=== PATIENT | male | born 1965 | race Caucasian/White ===

== ENCOUNTER → 2020-01-25 | Outpatient (CLI) | payer OTHER ==
--- NOTE | 2020-01-25 13:37 | Diagnostic Imaging Report ---
INDICATION: Puncture wound. COMPARISON: None available. TECHNIQUE: Three radiograph of the left foot dated January 25, 2020. FINDINGS: No acute fracture or dislocation. No destructive osseous process. 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 The Lisfranc joint is well aligned. Soft tissue swelling is noted along the plantar aspect of the foot without suspicious radiopaque foreign body. There is a small plantar calcaneal enthesophyte. IMPRESSION: No acute osseous abnormality with degenerative changes present, particularly involving the first MTP joint. Soft tissue swelling about the plantar aspect of the foot without suspicious radiopaque foreign body. Dictated by: Dictated on workstation # [id number]
== END ==
LOC: RAD 10:43
PROVIDERS: ATTEND Nurse Practitioner Family
DX: S91.332A Puncture wound without foreign body, left foot, initial encounter (principal); X58.XXXA Exposure to other specified factors, initial encounter
CPT/HCPCS: 73630

== ENCOUNTER → 2020-01-28 | Outpatient (CLI) | payer OTHER ==
[2020-01-28 11:26] LABS: BASOPHILS # (AUTO) 0.1 10^3/uL (0.0-0.1); BASOPHILS % (AUTO) 1 % (0-10); EOSINOPHILS # (AUTO) 0.1 10^3/uL (0.0-0.3); EOSINOPHILS % (AUTO) 2 % (0-10); HEMATOCRIT 41 % (40-54); HEMOGLOBIN 13.9 G/DL (13.3-17.7); LYMPHOCYTES # (AUTO) 1.4 X 10^3 (1.0-4.0); LYMPHOCYTES % (AUTO) 27 % (12-44); MEAN CORPUSCULAR HEMOGLOBIN 29 PG (25-34); MEAN CORPUSCULAR HGB CONC 34 G/DL (32-36); MEAN CORPUSCULAR VOLUME 85 FL (80-99); MEAN PLATELET VOLUME 9.4 FL (7.4-10.4); MONOCYTES # (AUTO) 0.6 X 10^3 (0.0-1.0); MONOCYTES % (AUTO) 12 % (0-12); NEUTROPHILS # (AUTO) 3.1 X 10^3 (1.8-7.8); NEUTROPHILS % (AUTO) 59 % (42-75); PLATELET COUNT 251 10^3/uL (130-400); RED CELL DISTRIBUTION WIDTH 13.4 % (10.0-14.5); WHITE BLOOD COUNT 5.2 10^3/uL (4.3-11.0)
== END ==
LOC: LAB 11:09
PROVIDERS: ATTEND Surgery
DX: E11.621 Type 2 diabetes mellitus with foot ulcer (principal); E11.42 Type 2 diabetes mellitus with diabetic polyneuropathy; L97.422 Non-pressure chronic ulcer of left heel and midfoot with fat layer exposed; I70.244 Atherosclerosis of native arteries of left leg with ulceration of heel and midfoot
CPT/HCPCS: 36415; 84134; 85025

== ENCOUNTER → 2020-01-28 | Outpatient (CLI) | payer OTHER | LOC: WOUNDCARE 08:38 | PROVIDERS: ATTEND Surgery | DX: E11.621 Type 2 diabetes mellitus with foot ulcer (principal); E11.42 Type 2 diabetes mellitus with diabetic polyneuropathy; L97.422 Non-pressure chronic ulcer of left heel and midfoot with fat layer exposed; I70.244 Atherosclerosis of native arteries of left leg with ulceration of heel and midfoot | CPT/HCPCS: 11042 ==

== ENCOUNTER → 2020-02-01 | Outpatient (CLI) | payer OTHER | LOC: WOUNDCARE 13:28 | PROVIDERS: ATTEND Surgery | DX: E11.621 Type 2 diabetes mellitus with foot ulcer (principal); E11.622 Type 2 diabetes mellitus with other skin ulcer; E11.42 Type 2 diabetes mellitus with diabetic polyneuropathy; L97.422 Non-pressure chronic ulcer of left heel and midfoot with fat layer exposed; I70.244 Atherosclerosis of native arteries of left leg with ulceration of heel and midfoot; L97.222 Non-pressure chronic ulcer of left calf with fat layer exposed | CPT/HCPCS: 11042; 87070; 87077; 87181; 87186; 87205 ==

== ENCOUNTER → 2020-02-16 | Outpatient (CLI) | payer OTHER | LOC: WOUNDCARE 08:06 | PROVIDERS: ATTEND Surgery | DX: E11.621 Type 2 diabetes mellitus with foot ulcer (principal); E11.622 Type 2 diabetes mellitus with other skin ulcer; E11.42 Type 2 diabetes mellitus with diabetic polyneuropathy; L97.422 Non-pressure chronic ulcer of left heel and midfoot with fat layer exposed; I70.244 Atherosclerosis of native arteries of left leg with ulceration of heel and midfoot; L97.222 Non-pressure chronic ulcer of left calf with fat layer exposed | CPT/HCPCS: 11042 ==

== ENCOUNTER → 2020-03-01 | Outpatient (CLI) | payer OTHER | LOC: WOUNDCARE 08:17 | PROVIDERS: ATTEND Surgery | DX: E11.621 Type 2 diabetes mellitus with foot ulcer (principal); E11.42 Type 2 diabetes mellitus with diabetic polyneuropathy; L97.422 Non-pressure chronic ulcer of left heel and midfoot with fat layer exposed | CPT/HCPCS: 11042 ==

== ENCOUNTER → 2020-03-15 | Outpatient (CLI) | payer OTHER | LOC: WOUNDCARE 08:04 | PROVIDERS: ATTEND Surgery | DX: E11.621 Type 2 diabetes mellitus with foot ulcer (principal); E11.42 Type 2 diabetes mellitus with diabetic polyneuropathy; L97.422 Non-pressure chronic ulcer of left heel and midfoot with fat layer exposed | CPT/HCPCS: 99212 ==

== ENCOUNTER 2023-07-16 15:36 | Emergency (ER) | payer OTHER ==
[~2023-07-16] VITALS: Ht 175 cm; Wt 80.0 kg
[2023-07-16] MEDS ORDERED: ASPIRIN 81 MG CHEWABLE TABLET PO STA (15:51)
[2023-07-16 15:56] LABS: BASOPHILS # (AUTO) 0.1 10^3/uL (0.0-0.1); BASOPHILS % (AUTO) 1 % (0-10); EOSINOPHILS # (AUTO) 0.1 10^3/uL (0.0-0.3); EOSINOPHILS % (AUTO) 1 % (0-10); HEMATOCRIT 45 % (40-54); HEMOGLOBIN 15.4 g/dL (13.3-17.7); LYMPHOCYTES # (AUTO) 1.9 10^3/uL (1.0-4.0); LYMPHOCYTES % (AUTO) 24 % (12-44); MEAN CORPUSCULAR HEMOGLOBIN 31 pg (25-34); MEAN CORPUSCULAR HGB CONC 34 g/dL (32-36); MEAN CORPUSCULAR VOLUME 90 fL (80-99); MEAN PLATELET VOLUME 9.3 fL (9.0-12.2); MONOCYTES # (AUTO) 0.6 10^3/uL (0.0-1.0); MONOCYTES % (AUTO) 7 % (0-12); NEUTROPHILS # (AUTO) 5.4 10^3/uL (1.8-7.8); NEUTROPHILS % (AUTO) 67 % (42-75); PLATELET COUNT 251 10^3/uL (130-400); WHITE BLOOD COUNT 8.1 10^3/uL (4.3-11.0)
--- NOTE | 2023-07-16 15:58 | ED Chest Pain ---
General Chief Complaint: Chest Pain Stated Complaint: DIZZINESS; CHEST PAIN Source: patient History of Present Illness Date Seen by Provider: Jul 16, 2023 Time Seen by Provider: 15:38 Initial Comments 57-year-old male presenting with complaints of chest pressure and dizziness that started around 230 while he was at work. He states that it was hot where he was working but he was inside. He felt like he broke out in a sudden sweat and had the dizziness and chest pressure. He does have a history of diabetes and high blood pressure. He takes 3 medicines for his blood pressure but had recently not been taking the amlodipine without checking his blood pressure. When he had the symptoms he tried to check his blood pressure but states that the cuff he had was not reading. He took his amlodipine after trying to check his blood pressure. He stated that the dizziness and chest pressure went away when he sat down and rested. He is not currently having any of the symptoms on arrival to the ED. He denies any history of coronary artery disease or irregular rhythm but states his father had a history of atrial fibrillation. Timing/Duration: 1 hour, resolved prior to arrival Severity/Quality: moderate, pressure Location: substernal Radiation: no radiation Activities at Onset: activity (at work) Prior CP/Workup: no prior chest pain ASA po ACCOUNT DEVELOPMENT SPECIALIST: No NTG SL ACCOUNT DEVELOPMENT SPECIALIST: No Associated Symptoms: No abdominal pain, No back pain, No diaphoresis, No dizziness, No edema, No fatigue, No fever/chills, No headache, No heartburn, No nausea/vomiting, No rash, No shortness of breath, No swelling/lump in chest, No syncope Allergies and Home Medications Allergies Coded Allergies: No Known Drug Allergies (Unverified , 07/16/23) Patient Home Medication List Home Medication List Reviewed: Yes Review of Systems Review of Systems Constitutional: No chills; diaphoresis, dizziness; No fever EENTM: No Symptoms Reported Respiratory: No Symptoms Reported Cardiovascular: See HPI Gastrointestinal: No Symptoms Reported Genitourinary: No Symptoms Reported Musculoskeletal: no symptoms reported Skin: no symptoms reported Psychiatric/Neurological: No Symptoms Reported Past Cqyefub-Pxaenn-Bawayx Hx Past Medical History Surgery/Hospitalization HX: Hypertension, diabetes Physical Exam Vital Signs Vital Signs - First Documented 07/16/23 16:07 Temp 36.5 Pulse 105 Resp 16 B/P (MAP) 134/79 (97) Pulse Ox 99 O2 Delivery Room Air Capillary Refill : Height, Weight, BMI Height: '" Weight: lbs. oz. kg; BMI Method: General Appearance: No Apparent Distress, WD/WN Neck: Full Range of Motion, Normal Inspection, Non Tender, Supple Respiratory: Chest Non Tender, Lungs Clear, Normal Breath Sounds, No Accessory Muscle Use, No Respiratory Distress Cardiovascular: Regular Rate, Rhythm, Normal Peripheral Pulses Gastrointestinal: Normal Bowel Sounds, No Pulsatile Mass, Non Tender, Soft Rectal: Deferred Extremity: Normal Capillary Refill, Normal Inspection, No Pedal Edema Neurologic/Psychiatric: Alert, Oriented x3, territory sales executive II-XII Norm as Tested Skin: Diaphoresis Progress/Results/Core Measures Results/Orders Lab Results Laboratory Tests Test 07/16/23 15:50 07/16/23 16:03 07/16/23 16:06 Range/Units White Blood Count 8.1 4.3-11.0 10^3/uL Red Blood Count 5.05 4.30-5.52 10^6/uL Hemoglobin 15.4 13.3-17.7 g/dL Hematocrit 45 40-54 % Mean Corpuscular Volume 90 80-99 fL Mean Corpuscular Hemoglobin 31 25-34 pg Mean Corpuscular Hemoglobin Concent 34 32-36 g/dL Red Cell Distribution Width 14.6 H 10.0-14.5 % Platelet Count 251 130-400 10^3/uL Mean Platelet Volume 9.3 9.0-12.2 fL Immature Granulocyte % (Auto) 0 % Neutrophils (%) (Auto) 67 42-75 % Lymphocytes (%) (Auto) 24 12-44 % Monocytes (%) (Auto) 7 0-12 % Eosinophils (%) (Auto) 1 0-10 % Basophils (%) (Auto) 1 0-10 % Neutrophils # (Auto) 5.4 1.8-7.8 10^3/uL Lymphocytes # (Auto) 1.9 1.0-4.0 10^3/uL Monocytes # (Auto) 0.6 0.0-1.0 10^3/uL Eosinophils # (Auto) 0.1 0.0-0.3 10^3/uL Basophils # (Auto) 0.1 0.0-0.1 10^3/uL Immature Granulocyte # (Auto) 0.0 0.0-0.1 10^3/uL Prothrombin Time 13.2 12.2-14.7 SEC INR Comment 1.0 0.8-1.4 Activated Partial Thromboplast Time 30 24-35 SEC Sodium Level 128 L 135-145 MMOL/L Potassium Level 4.9 3.6-5.0 MMOL/L Chloride Level 88 L 98-107 MMOL/L Carbon Dioxide Level 23 21-32 MMOL/L Anion Gap 17 H 5-14 MMOL/L Blood Urea Nitrogen 5 L 7-18 MG/DL Creatinine 0.95 0.60-1.30 MG/DL Estimat Glomerular Filtration Rate 94 BUN/Creatinine Ratio 5 Glucose Level 255 H 70-105 MG/DL Calcium Level 10.3 H 8.5-10.1 MG/DL Corrected Calcium 8.5-10.1 MG/DL Magnesium Level 1.8 1.6-2.4 MG/DL Total Bilirubin 0.6 0.1-1.0 MG/DL Aspartate Amino Transf (AST/SGOT) 21 5-34 U/L Alanine Aminotransferase (ALT/SGPT) 13 0-55 U/L Alkaline Phosphatase 69 40-136 U/L Troponin I < 0.30 <0.30 NG/ML Pro-B-Type Natriuretic Peptide < 36.0 <125.0 PG/ML Total Protein 7.8 6.4-8.2 GM/DL Albumin 4.7 H 3.2-4.5 GM/DL Lipase 77 8-78 U/L Urine Color YELLOW Urine Clarity CLEAR Urine pH 7.5 5-9 Urine Specific [place] 1.010 L 1.016-1.022 Urine Protein 2+ H NEGATIVE Urine Glucose (UA) TRACE H NEGATIVE Urine Ketones TRACE H NEGATIVE Urine Nitrite NEGATIVE NEGATIVE Urine Bilirubin NEGATIVE NEGATIVE Urine Urobilinogen 0.2 < = 1.0 MG/DL Urine Leukocyte Esterase NEGATIVE NEGATIVE Urine RBC (Auto) 1+ H NEGATIVE Urine RBC RARE /HPF Urine WBC NONE /HPF Urine Squamous Epithelial Cells RARE /HPF Urine Crystals NONE /LPF Urine Amorphous Sediment FEW BRE PHOSPHATE H /LPF Urine Bacteria NEGATIVE /HPF Urine Casts NONE /LPF Urine Mucus NEGATIVE /LPF Urine Culture Indicated NO Glucometer 205 H 70-110 MG/DL My Orders Orders - KITTY GARZA MD Cbc With Automated Diff (07/16/23 15:39) Magnesium (07/16/23 15:39) Ekg Tracing (07/16/23 15:39) Comprehensive Metabolic Panel (07/16/23 15:39) Protime With Inr (07/16/23 15:39) Partial Thromboplastin Time (07/16/23 15:39) O2 (07/16/23 15:39) Monitor-Rhythm Ecg Trace Only (07/16/23 15:39) Ed Iv/Invasive Line Start (07/16/23 15:39) Lipase (07/16/23 15:39) Troponin I Fs (07/16/23 15:39) Probnp Fs (07/16/23 15:39) Aspirin Chewable Tablet (Aspirin Chewabl (07/16/23 15:51) Ns Iv 1000 Ml (Ns Iv 1000 Ml) (07/16/23 16:01) Chest 1 View Ap/Pa Only (07/16/23 16:01) Ua Culture If Indicated (07/16/23 16:01) Accucheck Stat ONCE (07/16/23 16:02) Vital Signs/I&O 07/16/23 07/16/23 16:07 16:59 Temp 36.5 Pulse 105 105 Resp 16 20 B/P (MAP) 134/79 (97) 129/97 Pulse Ox 99 O2 Delivery Room Air Progress Progress Note #1: Progress Note Differential diagnosis includes myocardial infarction, hypotension, hyp ertension, cardiac arrhythmia, hypoglycemia, electrolyte imbalance, dehydration. Establish peripheral IV access and send labs for complete blood count, comprehensive metabolic profile, coagulation factors, troponin, proBNP, magnesium. Obtain urinalysis to look at hydration. 1 view chest x-ray looking for pathology in the chest. Placed on cardiac telemetry monitoring my initial interpretation is that he has sinus tachycardia with a heart rate of around 100 bpm. Oxygen saturations 99 to 100% on room air and he has a blood pressure of 134/79. Obtain electrocardiogram to further evaluate his heart rate and rhythm and look for ischemia. Administer aspirin 324 mg p.o. x1. Normal saline 1 L IV fluid bolus for hydration. Progress Note #2: Progress Note Complete blood count had a normal white blood cell count and normal hemoglobin. His comprehensive metabolic profile did not show any acute significant electrolyte imbalance to account for his episode of chest pain and dizziness. He had a negative troponin less than 0.3 and a negative proBNP. His magnesium was a up to 1.8. Chest x-ray did not show any acute abnormalities and his electrocardiogram showed heart rate was slightly fast but patient reports that his baseline heart rate is 90-110. Encourage fluids and hydration. Advised this may be related to working in the heat today and he may be a little dry. Advised if he continues to have concerns about his heart rate they may need to do a Holter monitor to look for an arrhythmia or irregular heartbeat. Otherwise continue with fluids and hydration and check back with the clinic. If having worsening or new symptoms he could always return for further evaluation through the ER Initial ECG Impression Date: Jul 16, 2023 Initial ECG Impression Time: 15:45 Initial ECG Rate: 97 Initial ECG Rhythm: Normal Sinus Initial ECG Comparisson: No Previous ECG Available Comment On my personal interpretation and review the electrocardiogram shows sinus rhythm with a heart rate of 97 bpm. WA interval [address] elevation. QT interval 325 ms with a QTc interval 380 ms. There is no prior tracing available for comparison. Diagnostic Imaging Diagonstic Imaging: Xray Plain Films/CT/US/NM/MRI: chest Comments [facility], [place] NAME: SAWYER CORONA Dez [facility] REC#: [id number] PT STATUS: DEP ER : 1965 PHYSICIAN: KITTY GARZA MD ADMIT DATE: 07/16/23/ER FS Signed Date of Exam:07/16/23 CHEST 1 VIEW AP/PA ONLY EXAMINATION: Chest 1 view HISTORY: chest pressure COMPARISON: None available. FINDINGS: The lungs are clear without edema or pneumonia. No pleural effusion or pneumothorax. Heart size is normal. IMPRESSION: 1. Clear lungs. Dictated by: Dictated on workstation # [id number] Dict: 07/16/23 1620 Trans: 07/16/23 1719 [id number] Interpreted by: KAILA DICKEY MD Electronically signed by: KAILA DICKEY MD 07/16/23 1719 Reviewed: Reviewed by Me Departure Impression Primary Impression: Chest pressure Additional Impression: Heart palpitations Disposition: 01 HOME, SELF-CARE Condition: Improved Departure-Patient Inst. Decision time for Depature: 16:57 Referrals: CRISTI RAMIREZ MD (PCP) Primary Care Physician Patient Instructions: Palpitations ED, Chest Pain, Adult ED Add. Discharge Instructions: Try to stay well hydrated and consider drinking electrolyte drinks to help with hydration and electrolytes. Check back with Dr. Ramirez and [facility] clinic. If having continued concerns they may want you to get a Holter Monitor to watch for irregular heart rate or rhythm. All discharge instructions reviewed with patient and/or family. Voiced understanding. KITTY GARZA MD Jul 16, 2023 15:58
[2023-07-16] MEDS ORDERED: NS IV 1000 ML 1,000 ML IV STA (16:01)
[2023-07-16 16:16] LABS: PROTHROMBIN TIME PATIENT 13.2 SEC (12.2-14.7)
--- NOTE | 2023-07-16 16:22 | Diagnostic Imaging Report ---
EXAMINATION: Chest 1 view HISTORY: chest pressure COMPARISON: None available. FINDINGS: The lungs are clear without edema or pneumonia. No pleural effusion or pneumothorax. Heart size is normal. IMPRESSION: 1. Clear lungs. Dictated by: Dictated on workstation # [id number]
[2023-07-16 16:25] LABS: BILIRUBIN,URINE NEGATIVE (NEGATIVE); CLARITY,URINE CLEAR; COLOR,URINE YELLOW; GLUCOSE, URINE (UA) TRACE (NEGATIVE); KETONES,URINE TRACE (NEGATIVE); NITRITE,URINE NEGATIVE (NEGATIVE); PH,URINE 7.5 (5-9); PROTEIN,URINE 2+ (NEGATIVE)
[2023-07-16 16:26] LABS: AMORPHOUS SEDIMENT,UR FEW AMOR PHOSPHATE /LPF; BACTERIA,URINE NEGATIVE /HPF; LEUKOCYTE ESTERASE ,URINE NEGATIVE (NEGATIVE); RBC,URINE RARE /HPF; SQUAMOUS EPITHELIAL CELL,UR RARE /HPF
[2023-07-16 16:27] LABS: BUN/CREATININE RATIO 5; CALCIUM 10.3 MG/DL (8.5-10.1); CARBON DIOXIDE 23 MMOL/L (21-32); CHLORIDE 88 MMOL/L (98-107); CREATININE SERUM 0.95 MG/DL (0.60-1.30); GFR ESTIMATED 94; GLUCOSE 255 MG/DL (70-105); MAGNESIUM 1.8 MG/DL (1.6-2.4); POTASSIUM 4.9 MMOL/L (3.6-5.0); SODIUM 128 MMOL/L (135-145)
[2023-07-16 16:28] LABS: ALANINE AMINOTRANSFERASE 13 U/L (0-55); ALBUMIN 4.7 GM/DL (3.2-4.5); ALKALINE PHOSPHATASE 69 U/L (40-136); BILIRUBIN,TOTAL 0.6 MG/DL (0.1-1.0); LIPASE 77 U/L (8-78); TOTAL PROTEIN 7.8 GM/DL (6.4-8.2)
[2023-07-16 16:59] VITALS: BP 129/97
== END 2023-07-16 17:02 | disposition home or self-care (01) ==
LOC: EDUNIT# 15:36 → ER FS 15:38
DX: R07.2 Precordial pain (principal); R00.2 Palpitations; I10 Essential (primary) hypertension; Z79.899 Other long term (current) drug therapy
CPT/HCPCS: 36415; 71045; 80053; 81000; 82947; 83690; 83735; 83880; 84484; 85025; 85610; 85730; 93005; 93041

== ENCOUNTER → 2023-09-24 | Outpatient (CLI) | payer OTHER | LOC: CARD 10:00 | PROVIDERS: ATTEND Internal Medicine Cardiovascular Disease | DX: I11.9 Hypertensive heart disease without heart failure (principal); I08.0 Rheumatic disorders of both mitral and aortic valves; I25.10 Atherosclerotic heart disease of native coronary artery without angina pectoris | CPT/HCPCS: 93306 ==